=== PATIENT | female | born 1995 | race Caucasian/White ===

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

== ENCOUNTER 2017-02-16 16:05 | Emergency (ER) | payer MEDICAID ==
[2017-02-16] MEDS ORDERED: NS 1,000 ML IV ONE (16:32)
[2017-02-16] MEDS ORDERED: KETOROLAC 30 MG/1 ML SDV IVP ONE (16:32)
[2017-02-16] MEDS ORDERED: DEXAMETHASONE 4 MG/ML VIAL IVP ONE (16:32)
[2017-02-16] MEDS ORDERED: LIDOCAINE 2% VISCOUS 15 ML UDCUP PO ONE (16:32)
--- NOTE | 2017-02-16 16:36 | EDPHY ---
H & P Stated Complaint: Recurrence of swollen tonsils;scheduled for T&A 03/04;Voice muffled Time Seen by Provider: 02/16/17 16:33 HPI/ROS: HPI: This is a 21-year-old female who presents with Chief Complaint: Recurrence of swollen tonsils;scheduled for T&A 03/04;Voice muffled Location: Tonsils Quality: Swollen Duration: Since November Signs and Symptoms: No fever, no chills, + pain with swallowing/eating, no cough, no chest pain, no ear pain, no neck stiffness Timing: Daily, worsening Severity: Moderate Context: Patient is a local college student who presents with chronic tonsillitis, scheduled for T&A 03/04/2017 with ENT in [facility]. She reports that she has had decreased intake due to the pain with swallowing. Denies cough, fever. In the past she has tested negative for strep. Also notes swollen lymph nodes in her neck. Denies neck stiffness. LMP is unknown as she has extended control. History type 1 insulin-dependent diabetic. Modifying Factors: Comment: ROS: see HPI Constitutional: No fever, no chills, no weight loss Eyes: No blurred vision Respiratory: No shortness of breath, no cough Cardiovascular: No chest pain Gastrointestinal: No nausea, no vomiting, no diarrhea Genitourinary: No dysuria Extremities: No myalgias Neurologic: No weakness, no numbness Skin: No rashes Hematologic: No bruising, no bleeding MEDICAL/SURGICAL/SOCIAL HISTORY: Medical history: Generally healthy. Does not take any regular medications. Surgical history: Denies Social history: Originally from [facility]. Here for as local college student. CONSTITUTIONAL: awake and alert, no obvious distress HEENT: Atraumatic and normocephalic, PERRL, EOMI. Tympanic membranes clear. Oropharynx clear, tonsils 2+; mild erythema; uvula midline; no exudate and moist pink mucosa. Airway patent. + spotty lymphadenopathy. No meningismus. Cardiovascular: Normal S1/S2, tachycardia, regular rhythm, without murmur rub or gallop. PULMONARY/CHEST: Symmetrical and nontender. Clear to auscultation bilaterally. Good air movement. No accessory muscle usage. ABDOMEN: Soft, nondistended, nontender, no rebound, no guarding, no peritoneal signs, no masses or organomegaly. No CVAT. EXTREMITIES: 2/2 pulses, strength 5/5, no deformities, no clubbing, no cyanosis or edema. NEUROLOGICAL: no focal neuro deficits. GCS 15. Speech somewhat muffled. No drooling. SKIN: Warm and dry, no erythema. no rash. Good capillary refill. Source: Patient Exam Limitations: No limitations - Personal History LMP (Females 10-55): Extended Cycle BCP/Inj Current Tetanus Diphtheria and Acellular Pertussis (TDAP): Yes - Medical/Surgical History Hx Asthma: No Hx Chronic Respiratory Disease: No Hx Diabetes: Yes Hx Cardiac Disease: No Hx Renal Disease: No Hx Cirrhosis: No Hx Alcoholism: No Hx HIV/AIDS: No Hx Splenectomy or Spleen Trauma: No Other PMH: Diabetes. recurrent tonsillitis - Social History Smoking Status: Never smoked Constitutional: Initial Vital Signs Temperature (C) 37.1 C 02/16/17 16:17 Heart Rate 105 H 02/16/17 16:17 Respiratory Rate 18 02/16/17 16:17 Blood Pressure 126/88 H 02/16/17 16:17 O2 Sat (%) 97 02/16/17 16:17 O2 Delivery Mode Room Air Allergies/Adverse Reactions: amoxicillin Allergy (Verified 02/16/17 17:23) Home Medications: Medication Instructions Recorded Insulin Pump, Patient Own 1 ea MISC AD 11/06/16 Clindamycin HCl [Clindamycin] 300 mg PO TID #30 cap 02/16/17 Lidocaine 2% Viscous 15 ml PO Q6 PRN #100 ml 02/16/17 predniSONE [predniSONE TAPER] 10 mg PO DAILY 6 Days ea 02/16/17 Medical Decision Making ED Course/Re-evaluation: Strep test, IV fluids, IV medications, oral medications ordered No signs of airway compromise/Genaro's angina/tonsillar abscess/meningitis/ otitis media/sinusitis. Given 2 L normal saline, IV Toradol, IV Decadron, and p.o. viscous lidocaine with adequate relief 1650: finger stick =55; given orange juice to drink Strep positive. Allergy to amoxicillin. IV clindamycin given verses oral antibiotic initially due to pain with swallowing. Spoke with patient's mother on the phone via patient's consent, and updated her on strep findings and plan of care. Mother is agreeable. Patient passed p.o. trial prior to discharge. Vital signs improved upon discharge including resolution of tachycardia This patient was seen under the supervision of my secondary supervising physician. I evaluated care for this patient independently. Patient's presentation, labs/imaging, treatment and plan of care were discussed with secondary supervising physician. Differential Diagnosis: Differential diagnosis includes but is not limited to chronic tonsillitis, Genaro's angina, strep pharyngitis, viral pharyngitis. - Data Points Laboratory Results: 02/16/17 16:31 Group A Strep Screen POSITIVE H (NEGATIVE) Medications Given: Discontinued Medications Dexamethasone (Decadron Injection) 8 mg IVP EDNOW ONE Stop: 02/16/17 16:33 Last Admin: 02/16/17 17:27 Dose: 8 mg Sodium Chloride (Ns) 1,000 mls @ 0 mls/hr IV EDNOW ONE; Wide Open PRN Reason: Protocol Stop: 02/16/17 16:32 Last Admin: 02/16/17 17:29 Dose: 1,000 mls Sodium Chloride (Ns) 1,000 mls @ 0 mls/hr IV EDNOW ONE; Wide Open PRN Reason: Protocol Stop: 02/16/17 16:33 Last Admin: 02/16/17 17:31 Dose: Not Given Clindamycin Phosphate/Dextrose (Cleocin 600 Mg (Premix)) 50 mls @ 100 mls/hr IV EDNOW ONE PRN Reason: Protocol Stop: 02/16/17 17:34 Last Admin: 02/16/17 17:27 Dose: 50 mls Ketorolac Tromethamine (Toradol) 30 mg IVP EDNOW ONE Stop: 02/16/17 16:33 Last Admin: 02/16/17 17:25 Dose: 30 mg Lidocaine (Lidocaine 2% Viscous) 15 ml PO EDNOW ONE Stop: 02/16/17 16:33 Last Admin: 02/16/17 17:26 Dose: 15 ml Departure - Departure Disposition: Home, Routine, Self-Care Clinical Impression: Strep pharyngitis, Strep tonsillitis Condition: Fair Instructions: Strep Throat (ED), Tonsillitis (ED) Additional Instructions: Take Tylenol 650 mg every 4 hours and/or Ibuprofen 600 mg every 8 hours with food as needed for pain. Eat popsicles for hydration and to ease throat discomfort. Take all of antibiotics and steroid taper as directed until complete. Monitor blood sugars. Referrals: Dom DICKINSON [Other] - As per Instructions Stand Alone Forms: School Excuse Prescriptions: Clindamycin HCl [Clindamycin] 300 mg PO TID #30 cap Lidocaine 2% Viscous 15 ml PO Q6 PRN #100 ml PRN Reason: Pain, Moderate predniSONE [predniSONE TAPER] 10 mg PO DAILY 6 Days ea
[2017-02-16] MEDS ORDERED: CLINDAMYCIN 600 MG/DEXTROSE 50 ML IV ONE (17:05)
[2017-02-16] MEDS: NS 1,000 ML IV ONE ×2 (17:28→17:29)
[2017-02-16 19:09] VITALS: BP 125/80; PULSE 85; RESP 18; TEMP 98.6; O2SAT 98
== END 2017-02-16 19:09 | disposition home or self-care (01) ==
DX: J03.00 Acute streptococcal tonsillitis, unspecified (principal); E11.9 Type 2 diabetes mellitus without complications; Z79.4 Long term (current) use of insulin
CPT/HCPCS: 96365; J1100; J1885